=== PATIENT | female | born 1985 | race Native Hawaiian/Other Pacific Islander ===

== ENCOUNTER 2023-10-05 08:55 | Emergency (ER) | payer BC, OTHER ==
[~2023-10-05] VITALS: Ht 160 cm; Wt 60.6 kg
[2023-10-05 09:18] VITALS: BP 144/88; PULSE 90; RESP 16; TEMP 97.7; O2SAT 100
[2023-10-05] MEDS ORDERED: CEPH500C PO (10:33)
[2023-10-05] MEDS ORDERED: NAPR-746 PO (10:33)
== END 2023-10-05 10:34 | disposition home or self-care (01) ==
LOC: ER 08:55
DX: S05.12XA Contusion of eyeball and orbital tissues, left eye, initial encounter (principal); S90.411A Abrasion, right great toe, initial encounter; Z88.6 Allergy status to analgesic agent; Z88.8 Allergy status to other drugs, medicaments and biological substances; W26.9XXA Contact with unspecified sharp object(s), initial encounter; Y93.89 Activity, other specified; Y92.89 Other specified places as the place of occurrence of the external cause; Y99.8 Other external cause status
CPT/HCPCS: 70450; 70486